=== PATIENT | male | born 1965 | race Caucasian/White ===

== ENCOUNTER 2022-12-17 13:15 | Emergency (ER) | payer SELFPAY ==
--- NOTE | ~2022-12-17 | XR_ITS ---
EXAMINATION: XR knee LT 3V DATE: 12/17/2022 14:03 INDICATION: Left knee pain TECHNIQUE: Three views of the left knee were obtained. COMPARISON: None. FINDINGS: Alignment is normal. No fracture or osteochondral lesion. Joint spaces are normal with no e rosions. No joint effusion/synovitis. There is an anterior soft tissue laceration near the proximal tibia. No definite radiopaque foreign body is identified. IMPRESSION: 1. Anterior soft tissue laceration in the proximal tibia without underlying osseous abnormality or de finite radiopaque foreign body identified. Reviewed, dictated and finalized at location A. IMPRESSION: 1. Anterior soft tissue laceration in the proximal tibia without underlying oss eous abnormality or definite radiopaque foreign body identified.
--- NOTE | ~2022-12-17 | XR_ITS ---
EXAMINATION: XR tibia fibula LT 2V INDICATION: Left leg pain and laceration TECHNIQUE: Two views of the left tibia and fibula are obtained. COMPARISON: None available FINDINGS: Alignment is normal. No fracture or osteochondral lesion. Joint spaces are normal with no e rosions. No joint effusion/synovitis. There is an anterior soft tissue laceration near the proximal tibia. No definite radiopaque foreign body is identified. IMPRESSION: 1. Anterior soft tissue laceration in the proximal tibia without underlying osseous abnormality or de finite radiopaque foreign body identified. Reviewed, dictated and finalized at location A. IMPRESSION: 1. Anterior soft tissue laceration in the proximal tibia without underlying oss eous abnormality or definite radiopaque foreign body identified.
[2022-12-17 13:22] VITALS: BP 132/73; PULSE 65; RESP 18; TEMP 36.8; O2SAT 98
--- NOTE | 2022-12-17 14:09 | ED.GENADULT ---
HPI - General Adult General Chief complaint: Wound/Laceration Stated complaint: I think I need stiches Time Seen by Provider: 12/17/22 13:38 History of Present Illness HPI narrative: Patient is a 57-year-old male who presents ER with laceration to the left flower. Patient was moving a piece of glass that covers a tabletop when it slipped and struck him in the flower. Tetanus shot updated in the last 2 to 3 years. No numbness or tingling. Bleeding controlled. Denies any numbness or tingling to the lower extremity. Normal range of motion and function at the knee. Related Data Allergies Allergy/AdvReac Type Severity Reaction Status Date / Time No Known Allergies Allergy Verified 12/17/22 13:17 Review of Systems Musculoskeletal: Musculoskeletal: Denies arthralgias and Denies joint swelling Comments: Laceration over the left knee at the tibial tuberosity with involvement patellar tendon. Integumentary/Breasts: Skin/Breast: Denies erythema and Denies rash Comments: Left leg laceration Neurologic: Denies focal weakness and Denies numbness PMFSH Past Medical History Medical History (Updated 12/17/22 @ 17:34 by Rocky Christiansen MD) Healthy adult male Surgical History Surgical History (Updated 12/17/22 @ 17:34 by Rocky Christiansen MD) No pertinent past surgical history Exam Narrative: GENERAL: Well-appearing, well-nourished, and in no acute distress. HEAD: Normocephalic, atraumatic. HEART: Regular rate and rhythm. Normal peripheral pulses. EXTREMITIES: Left lower extremity with laceration over the proximal tibia near the tibial tuberosity. 7 cm in length and extends down past the subcutaneous tissue. There is patellar tendon involvement that is approximately 3 cm in length and approximately 50% depth, possibly more on the lateral aspect. There is no bone exposed. No active bleeding. Multiple shards of glass noted in the wound and removed. SKIN: Warm, dry, no rash. NEURO: No focal deficits. Alert and oriented x3. PSYCH: Normal mood and affect. Course Course Emergency Course: Patient resting comfortably. Discussed case with Dr. Vaughan with orthopedic surgery. Discussed the involvement of patellar tendon. Recommends suturing the patellar tendon with either 0 Vicryl or 2-0 Vicryl and then closing the top layer with mattress sutures. The patient be placed in a knee immobilizer and given crutches. He should follow-up in clinic where they can do additional imaging to determine extent of injury. Patient has been educated extensively on possibility of infection and will be started on prophylactic antibiotics. He will also be given pain medication. Vital Signs Vital signs: Vital Signs Temperature 98.3 F 12/17/22 13:22 Pulse Rate 65 12/17/22 13:22 Respiratory Rate 18 12/17/22 13:22 Blood Pressure 132/73 12/17/22 13:22 Pulse Oximetry 98 12/17/22 13:22 Temperature 98.3 F 12/17/22 13:22 Pulse Rate 65 12/17/22 13:22 Respiratory Rate 18 12/17/22 13:22 Blood Pressure 132/73 12/17/22 13:22 Pulse Oximetry 98 12/17/22 13:22 Procedures Laceration Laceration 1: Date: 12/17/22 Time: 15:00 Site: lower extremity Side (If applicable): left Size (cm): 7 Description: linear Depth: involves tendon Local Anesthetic: lidocaine 1% and with epi Amount of anesthesia used (mL): 5 Pre-repair: wound explored, irrigated extensively, minor debridement (shards of glass removed) and other (partial laceration of the patellar tendon) ====== Skin Level ====== Skin layer closed with: nylon Size (cm): 3-0 Number of sutures: 5 Technique: horizontal mattress ====== Subcutaneous Layer ====== ====== Muscle Layer ====== ====== Tendon Layer ====== Tendon layer closed with: vicryl Size: other (2-0) Number of sutures: 4 Technique: simple interrupted
[2022-12-17] MEDS: LIDO 1%/EPINEPHRINE 1:100,000 50 ML VIAL (15:53)
== END 2022-12-17 16:34 | disposition home or self-care (01) ==
LOC: ANHED 15:40
PROVIDERS: Emergency Provider Emergency Medicine
DX: S76.122A Laceration of left quadriceps muscle, fascia and tendon, initial encounter (principal); W25.XXXA Contact with sharp glass, initial encounter; W45.8XXA Other foreign body or object entering through skin, initial encounter; W20.8XXA Other cause of strike by thrown, projected or falling object, initial encounter
CPT/HCPCS: 12002; 27664; 73562; 73590; 99284